=== PATIENT | female | born 1955 | race Caucasian/White ===

== ENCOUNTER 2017-06-19 16:23 | Inpatient (IN) | payer SELFPAY ==
[~2017-06-19] VITALS: Ht 160 cm; Wt 58.2 kg
--- NOTE | ~2017-06-19 | OP ---
PATIENT NAME: DELIA HENSLEY MEDICAL RECORD: [id number] :57 LOCATION:[id number] ADMISSION DATE:06/19/17 SURGEON: HYUN ROSAS, DATE OF OPERATION: 06/20/2017 HISTORY: Ms. Hensley is a 62-year-old right hand dominant female who fell 3 days ago after tripping over her dog. PREOPERATIVE DIAGNOSIS: Right proximal humerus fracture. POSTOPERATIVE DIAGNOSIS: Right proximal humerus fracture. PROCEDURE PERFORMED: Right proximal humerus open reduction internal fixation. INDICATIONS: Ms. Hensley as mentioned above tripped over her dog 3-4 days ago and sustained a proximal humerus fracture. She did seek medical attention because she thought she could still move her fingers even though she had some numbness in the ring and small fingers. She came to the ER after more pain and swelling in the shoulder. X-rays were taken and she has shown to see a very comminuted proximal humerus fracture at the surgical neck as well as greater tuberosity. It extended down into the shaft. This was noted and she was admitted to the hospital in preparation for surgery today. DESCRIPTION OF PROCEDURE: The patient was given a block and preoperative anesthesia, given a gram of Ancef preoperatively, taken to the operative suite, laid in the supine position, intubated and put in the beach chair position. A bump was placed under scapula. Then, the right arm was prepped and draped in sterile fashion. After this was done, timeout was performed and everyone was in agreeance with the correct side, site, and patient. The patient had been consented prior to the surgery and is aware of the risks and benefits. Once the patient was prepped and draped and a timeout was performed, incision was made in the deltopectoral interval with a 10 blade and then careful dissection was made down to the cephalic vein. The cephalic vein was taken medially. The proximal centimeter or so of the pectoralis major was taken off the humerus, released and the fracture was seen to be very comminuted especially the head and greater tuberosity was reduced and a plate was put on and screws were put into the shaft holding the reduction. Once this was done, screws were shot up into the head itself. There was severe comminution over the medial calcar, which is concerning for healing. When screws were shot up into the head, I put several locking screws into the head. Fluoroscopy was taken to ensure there were no screws in the joint and then 2 more screws were put in the shaft, locking screws. After this was done, the fracture was somewhat reduced. The supraspinatus and infraspinatus had been sutured prior and these were sutured down to the plate, giving a small reduction of the greater tuberosity down to the plate. X-rays were then taken even an axillary view and again showing that none of the screws were into the joint and the fracture was held in adequate position. The plate that was used was a Biomet plate, 4-hole proximal humerus high plate was used. There were eight 3.5 screws used, locking screws and one 3.5 nonlocking screw. After the plate had been put in, x-rays were taken and the rotator cuff was sutured down to the plate. The wound was thoroughly irrigated and then the fascia over the deltopectoral interval was approximated with #1 Vicryl. The skin was then closed with 2-0 Vicryl in an inverted interrupted fashion and Prineo was placed on the skin and Telfa and Tegaderm placed over that and the patient was wrapped with Michele wrap from the hand up for swelling and put in a sling. She was awakened and taken to recovery in stable OPERATIVE REPORT [id number] DELIA HENSLEY condition. Blood loss was approximately 200 mL. Complications were none. TRANSINT:[id number] Voice Confirmation ID: [id number] DOCUMENT ID: [id number] HYUN ROSAS DO at 1425 CC: [id number] DICTATION DATE: 06/20/17 1140 FIRE BATTALION CHIEF: 06/20/17 1339 ADM IN [facility] [address] [id number]
[2017-06-19 18:08] LABS: BASOPHILS 0.1 % (0-2); EOSINOPHILS 0 % (0-7); HEMATOCRIT 38.9 % (36.0-48.0); IMMATURE GRANULOCYTES 0.2 % (0-5); MCH 33.5 pg (26.0-34.0); MCV 93.1 fL (80.0-100.0); MEAN PLATELET VOLUME 10.1 fL (7.4-10.4); MONOCYTES 11.7 % (2-11); PLATELET COUNT 165 10x3/uL (130-400); RBC 4.18 10x6/uL (4.00-5.40); RDW 12.6 % (11.5-14.5); WBC 10.9 10x3/uL (4.8-10.8)
[2017-06-19 18:17] LABS: CALC OSMOLALITY 264 mosm/kg (275-300); CALCIUM 9.4 mg/dL (8.5-10.1); CARBON DIOXIDE 28.3 mmol/L (21.0-32.0); CHLORIDE - SERUM 95 mmol/L (98-107); CREATININE - SERUM 0.4 mg/dL (0.6-1.3); GLUCOSE 110 mg/dL (74-106); POTASSIUM - SERUM 3.4 mmol/L (3.5-5.1); SODIUM 133 mmol/L (136-145); UREA NITROGEN 8 mg/dL (7-18); eGFR NON AFRICAN AMERICAN > 90 mL/min (90-120)
[2017-06-19 20:00] VITALS: BP 123/58
[2017-06-19 22:34] VITALS: BP 118/86; Ht 160 cm; Wt 58.2 kg
[2017-06-19] MEDS ORDERED: CELEXA20 MG PO (23:01)
[2017-06-19] MEDS ORDERED: XANAX0.5 MG PO (23:02)
[2017-06-20] VITALS: BP 118/80
[2017-06-20 04:00] VITALS: BP 114/83
[2017-06-20 08:47] VITALS: BP 154/95
[2017-06-20 18:42] VITALS: BP 136/74
[2017-06-21] VITALS: BP 143/78
[2017-06-21 04:00] VITALS: BP 165/92
[2017-06-21 06:21] LABS: HEMATOCRIT 35.3 % (36.0-48.0); HEMOGLOBIN 12.2 g/dL (12-16)
[2017-06-21 06:38] VITALS: BP 165/92
[2017-06-21 06:59] LABS: ALBUMIN 2.7 g/dL (3.4-5.0); ALKALINE PHOSPHATASE 52 U/L (46-116); ALT (SGPT) 17 U/L (10-68); BILIRUBIN - TOTAL 0.92 mg/dL (0.2-1.3); CALC OSMOLALITY 268 mosm/kg (275-300); CALCIUM 8.2 mg/dL (8.5-10.1); CHLORIDE - SERUM 97 mmol/L (98-107); CREATININE - SERUM 0.4 mg/dL (0.6-1.3); GLUCOSE 117 mg/dL (74-106); POTASSIUM - SERUM 3.2 mmol/L (3.5-5.1); PROTEIN - SERUM 5.6 g/dL (6.4-8.2); SODIUM 135 mmol/L (136-145); UREA NITROGEN 7 mg/dL (7-18); eGFR NON AFRICAN AMERICAN > 90 mL/min (90-120)
[2017-06-21 08:21] VITALS: BP 146/85
[2017-06-21 10:34] LABS: BASOPHILS 0.1 % (0-2); EOSINOPHILS 0.1 % (0-7); IMMATURE GRANULOCYTES 0.3 % (0-5); LYMPHOCYTES 11.7 % (15-50); MCH 32.9 pg (26.0-34.0); MCHC 33.9 g/dL (31.0-37.0); MEAN PLATELET VOLUME 10.6 fL (7.4-10.4); MONOCYTES 16.7 % (2-11); NEUTROPHILS 71.1 % (40-80); PLATELET COUNT 166 10x3/uL (130-400); RBC 3.68 10x6/uL (4.00-5.40); RDW 12.7 % (11.5-14.5); WBC 9.3 10x3/uL (4.8-10.8)
[2017-06-21] MEDS ORDERED: OXYCODONE HCL5 MG PO (12:37)
[2017-06-21] MEDS ORDERED: ATARAX 25 MG TA25 MG PO (12:37)
== END 2017-06-21 14:38 | disposition home or self-care (01) | DRG 493 ==
LOC: D.ER 16:23 → D.MS 19:00
PROVIDERS: Emergency Medicine; Orthopaedic Surgery
PROC: 0PSF04Z Reposition Right Humeral Shaft with Internal Fixation Device, Open Approach (ICD-10-PCS; principal; 2017-06-20 09:17)
DX: S42.301A Unspecified fracture of shaft of humerus, right arm, initial encounter for closed fracture (principal); F17.203 Nicotine dependence unspecified, with withdrawal; S42.211A Unspecified displaced fracture of surgical neck of right humerus, initial encounter for closed fracture; S42.251A Displaced fracture of greater tuberosity of right humerus, initial encounter for closed fracture; W01.0XXA Fall on same level from slipping, tripping and stumbling without subsequent striking against object, initial encounter; J44.9 Chronic obstructive pulmonary disease, unspecified; E87.6 Hypokalemia; I10 Essential (primary) hypertension

== ENCOUNTER 2017-08-04 09:37 | Day surgery (SDC) | payer SELFPAY ==
[~2017-08-04] VITALS: Ht 157.5 cm; Wt 58.1 kg
--- NOTE | ~2017-08-04 | OP ---
PATIENT NAME: DELIA HENSLEY MEDICAL RECORD: [id number] :57 LOCATION:[facility] ADMISSION DATE: SURGEON: HYUN ROSAS DO DATE OF OPERATION: 08/04/2017 PROCEDURE PERFORMED: Removal of hardware, right proximal humerus. PREOPERATIVE DIAGNOSIS: Right proximal humerus painful hardware and hardware failure. POSTOPERATIVE DIAGNOSIS: Right proximal humerus painful hardware and hardware failure. INDICATIONS: Ms. Hensley is a 62-year-old female who underwent right proximal humerus ORIF approximately 6 weeks ago after falling and tripping over her dog. She did well postoperatively. She was monitored closely until about 2 weeks ago, she started to have increasing pain in her shoulder. X-rays were taken and started to show some screw cut out in the most 2 proximal screws of the plate from the head, superior part of the head collapsing. Ms. Hensley was informed prior to her discharge after the first surgery that if she did not stop smoking, this was a risk and that the actual fracture may never heal. She is aware that and smoked anyways and happened what I had warned her of the screws would cut out and the head would collapse. However, it did not collapse medially, it did superiorly. Once this was seen on x-rays, she was consented for removal of the top 2 screws that had been cut out and did not want them scraping into joint. She was informed of the risks and benefits of this including need for further surgery, further screw cutout and infection. She had normal white count prior to the surgery. I was not worried about infection, but she was warned about further failure if she did not stop smoking and she consented to the procedure of removing the top 2 screws. DESCRIPTION OF PROCEDURE: She received a block in the preoperative area by anesthesia. She was then taken to the operative suite, given 900 mg of clindamycin preoperatively. A timeout was performed and everyone was in agreeance to correct side, site, and patient. The patient had an LMA placed and was sedated, placed in the beach chair position and then the right shoulder was prepped and draped in sterile fashion. After time out and the patient was positioned, incision commenced following the old deltopectoral interval. Careful dissection was made down to the cephalic vein, which was seen, taken laterally and there was quite a significant amount of scar tissue this has gone through and then the plate was exposed. The top 2 screws were seen and removed and this was confirmed under fluoroscopy. The fracture seemed to be stable; however, not completely healed, so no further work was done. This wound was then thoroughly irrigated and vancomycin powder was put in the wound and then the deltopectoral interval was closed with #1 Vicryl single interrupted stitches and then the skin was closed with 2-0 Vicryl in an inverted interrupted fashion and then Prineo was placed on the skin for closure. Blood loss was approximately 50 mL. Complications were none. TRANSINT:[id number] Voice Confirmation ID: [id number] DOCUMENT ID: [id number] OPERATIVE REPORT [id number] DELIA HENSLEY,HYUN Tamayo DO at 1450 CC: [id number] DICTATION DATE: 08/04/17 1320 BELL NECK HAMMERER: 08/04/17 1433 [facility] [address] [place] [address]
[~2017-08-04 09:37] MED LIST: ATARAX 25 MG TA25 MG PO; CELEXA20 MG PO; OXYCODONE HCL5 MG PO; PERCOCET 5-3251 TAB PO; XANAX0.5 MG PO
[2017-08-04 10:39] LABS: HEMOGLOBIN 17.4 g/dL (12-16); MCH 32.8 pg (26.0-34.0); MCHC 34.8 g/dL (31.0-37.0); MCV 94.2 fL (80.0-100.0); MEAN PLATELET VOLUME 10.3 fL (7.4-10.4); RBC 5.31 10x6/uL (4.00-5.40); RDW 12.3 % (11.5-14.5)
[2017-08-04 10:56] VITALS: BP 162/123; Ht 157.5 cm; Wt 58.1 kg
[2017-08-04 11:17] LABS: CALC OSMOLALITY 273 mosm/kg (275-300); CALCIUM 9.5 mg/dL (8.5-10.1); CHLORIDE - SERUM 99 mmol/L (98-107); CREATININE - SERUM 0.5 mg/dL (0.6-1.3); GLUCOSE 114 mg/dL (74-106); POTASSIUM - SERUM 3.9 mmol/L (3.5-5.1); SODIUM 138 mmol/L (136-145); UREA NITROGEN 5 mg/dL (7-18); eGFR NON AFRICAN AMERICAN > 90 mL/min (90-120)
[2017-08-04] MEDS ORDERED: PERCOCET 10/3251 TA1 PO (13:14)
[2017-08-04] MEDS ORDERED: AUGMENTIN 875-11 TAB PO (13:15)
== END 2017-08-04 16:05 | disposition home or self-care (01) ==
LOC: D.OPS 09:37 → D.PAN 12:00 → D.OPS 12:00
PROVIDERS: Anesthesiology
DX: T85.848A Pain due to other internal prosthetic devices, implants and grafts, initial encounter (principal); S42.291S Other displaced fracture of upper end of right humerus, sequela; F17.200 Nicotine dependence, unspecified, uncomplicated; I10 Essential (primary) hypertension; G47.30 Sleep apnea, unspecified; Z01.812 Encounter for preprocedural laboratory examination

== ENCOUNTER 2017-12-27 08:25 | Inpatient (IN) | payer MEDICAID ==
[2017-12-24 09:43] LABS: BASOPHILS 0.1 % (0-2); HEMATOCRIT 46.3 % (36.0-48.0); HEMOGLOBIN 16.4 g/dL (12-16); IMMATURE GRANULOCYTES 0.1 % (0-5); LYMPHOCYTES 25.9 % (15-50); MCH 31.9 pg (26.0-34.0); MCHC 35.4 g/dL (31.0-37.0); MCV 90.1 fL (80.0-100.0); MEAN PLATELET VOLUME 9.8 fL (7.4-10.4); MONOCYTES 9.3 % (2-11); NEUTROPHILS 63.6 % (40-80); PLATELET COUNT 182 10x3/uL (130-400); RBC 5.14 10x6/uL (4.00-5.40); RDW 14.1 % (11.5-14.5); WBC 8.4 10x3/uL (4.8-10.8)
[2017-12-24 09:49] LABS: APPEARANCE CLEAR (CLEAR); BILIRUBIN NEGATIVE (NEGATIVE); COLOR YELLOW (YELLOW); GLUCOSE NEGATIVE (NEGATIVE); KETONE NEGATIVE (NEGATIVE); NITRITE NEGATIVE (NEGATIVE); PROTEIN NEGATIVE (NEGATIVE); UROBILINOGEN NORMAL (NORMAL)
[2017-12-24 09:51] LABS: CALC OSMOLALITY 261 mosm/kg (275-300); CALCIUM 8.7 mg/dL (8.5-10.1); CARBON DIOXIDE 33.8 mmol/L (21.0-32.0); CHLORIDE - SERUM 96 mmol/L (98-107); CREATININE - SERUM 0.6 mg/dL (0.6-1.3); GLUCOSE 79 mg/dL (74-106); POTASSIUM - SERUM 3.5 mmol/L (3.5-5.1); SODIUM 132 mmol/L (136-145); UREA NITROGEN 8 mg/dL (7-18); eGFR NON AFRICAN AMERICAN > 90 mL/min (90-120)
[2017-12-24 09:52] LABS: PROTIME 12.8 SECONDS (11.6-15.0)
[2017-12-24 09:53] LABS: APTT 28.4 SECONDS (22.8-39.4)
[2017-12-27] VITALS (9 sets, daily range): BP systolic 100–149; BP diastolic 54–89; Ht 152.4 cm; Wt 54.5 kg
[~2017-12-27] VITALS: Ht 152.4 cm; Wt 54.5 kg
--- NOTE | ~2017-12-27 | OP ---
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 PROCEDURES: 1. Removal of hardware of the right shoulder. 2. Right total shoulder arthroplasty. SURGEON: Larry Granda MD ANESTHESIA: General. INTRAOPERATIVE COMPLICATIONS: The patient had a large posterior fragment of the greater tuberosity, which had retracted over. Fortunately, after removal of this, the rotator cuff was still intact. The area that was required to get to it was repaired nicely. The patient's proximal humeral head had substantial areas of nonunion including the entire surgical neck of the humerus. It was, however, replaceable with what I feel like is a very good surgical construct. OPERATIVE SUMMARY IN DETAIL: After obtaining the appropriate preoperative orthopaedic surgery consent as well as anesthetic consultation, evaluation, and clearance, the patient was brought to the operating room and placed on the operating table in the supine position. After general laryngeal mask was administered, the patient was placed in the beachchair position. The arm was held in the Trimano arm holding device after it was prepped and draped in a routine sterile fashion. Previously utilized deltopectoral incision was utilized again. Substantial scar tissue was encountered. Scar tissue was then taken down to the area of the clavipectoral fascia. Conjoined tendon was identified. The deltoid was very gently teased off the rotator cuff. After careful evaluation, inspection, and fluoroscopic examination, the patient's posterior fragment that was interposed in the joint was identified. First, the subscapularis was taken down in a peel-down effect. The entire lesser tuberosity was essentially nonunited and was removed. At this point, the humeral head was cut because it was also found to be nonunited. The humeral head cut was made and the entire joint was inspected and evaluated. The shoulder was then internally rotated. After the humeral head cut was made, a small incision was made in the rotator cuff posteriorly between supraspinatus and infraspinatus tendons and a large fragment of bone was removed. It was somewhat adherent to the rotator cuff but in of itself was not the entire rotator cuff attachment. After removing this, this rotator cuff incision was repaired [id number] with #2 Ethibond. I felt like this was a solid repair of the defect created by removing the bone. The shoulder was then externally rotated again and the proximal humerus was reamed and broached. While the canal was big, the proximal aspect was very hard. I was concerned that if I tried to put down a much larger stem than a #5, I would cause proximal fracture. The #5 stem with cut protect cover was then put into place and the glenoid was approached. Please note that the biceps was tenotomized earlier and saved for later tenotomy. After the circumferential labrectomy was performed, the guide OPERATIVE REPORT [id number] DELIA HENSLEY was then utilized for reaming of the glenoid for a size small. The glenoid was prepared for the VaultLock glenoid from [employer]. Copious flushing with epinephrine laden saline was then followed by insertion of the glenoid component. All excess cement was removed and the glenoid was held firmly until the cement was completely hard. At this point, the proximal humerus was reapproached. The size #5 stem with a 42 x 17 head was picked. The size #5 stem was then cemented into the proximal humerus. This was because of the substantial amount of poor bone quality associated with the patient's previous fracture. After the cement was hardened, the heads were trialed and it was felt that the best coverage and best thickness was 42 x 17. This was tamped in place with Gonzalez taper with a 2-mm offset being positioned so that the patient had the most optimal coverage without rotator cuff abutment. Shoulder was reduced at this point. Fluoroscopy was then brought back in. Radiographs were taken that showed very nice construct. Having completed this, wound was copiously irrigated. The subscapularis peel and opening were closed with #2 Ethibond in transosseous fashion. Although the lesser tuberosity had been previously removed, there was ample enough bone to reapproximate the subscapularis back to a transosseous fashion with #2 Ethibond. Having completed this, wound was then again irrigated. Eileen was used to help control generalized ooze of the patient. The wound was then closed with #1 Vicryl followed by 2-0 Vicryl and skin archie. Sterile dressings were applied. The patient was awakened and taken to the recovery room in stable condition. All final needle and sponge counts were correct. TRANSINT:[id number] Voice Confirmation ID: [id number] DOCUMENT ID: [id number] KALEE ESPINOZA, LARRY COLON at 1549 CC: [id number] DICTATION DATE: 12/27/17 1605 ELECTRIC MULE DRIVER: 12/27/17 1644 ADM IN [address] [id number] [place] [address]
[~2017-12-27 08:25] MED LIST changes: +AUGMENTIN 875-11 TAB PO; +COZAAR100 MG PO; +PERCOCET 10/3251 TA1 PO; +PROTONIX20 MG PO; +TENORETIC 50 TA1 TAB PO
[2017-12-28 05:39] LABS: HEMATOCRIT 37.3 % (36.0-48.0); HEMOGLOBIN 12.8 g/dL (12-16); MCH 30.9 pg (26.0-34.0); MCHC 34.3 g/dL (31.0-37.0); MCV 90.1 fL (80.0-100.0); MEAN PLATELET VOLUME 9.8 fL (7.4-10.4); RBC 4.14 10x6/uL (4.00-5.40); RDW 14.1 % (11.5-14.5); WBC 7.7 10x3/uL (4.8-10.8)
[2017-12-28] MEDS ORDERED: PERCOCET 10/3251 TA1 PO (07:50)
[2017-12-28 08:25] VITALS: BP 113/64
[2017-12-28 11:57] VITALS: BP 159/57
[2017-12-28 16:27] VITALS: BP 140/79
== END 2017-12-28 19:42 | disposition home or self-care (01) | DRG 483 ==
LOC: D.OPS 08:25 → D.PAN 10:30 → D.OPS 11:10 → D.MS 16:25 → D.OPS 16:26 → D.MS 12-28 19:42
PROVIDERS: Orthopaedic Surgery
PROC: 0PPC04Z Removal of Internal Fixation Device from Right Humeral Head, Open Approach (ICD-10-PCS; 2017-12-27)
PROC: 0PT Upper Bones, Resection (ICD-10-PCS; 2017-12-27)
PROC: 0RRJ0JZ Replacement of Right Shoulder Joint with Synthetic Substitute, Open Approach (ICD-10-PCS; principal; 2017-12-27 10:00)
DX: T84.84XA Pain due to internal orthopedic prosthetic devices, implants and grafts, initial encounter (principal); S42.251K Displaced fracture of greater tuberosity of right humerus, subsequent encounter for fracture with nonunion; X58.XXXD Exposure to other specified factors, subsequent encounter

== ENCOUNTER 2018-04-25 09:05 | Day surgery (SDC) | payer MEDICAID ==
[2018-04-22 09:43] LABS: HEMATOCRIT 43.7 % (36.0-48.0); HEMOGLOBIN 15.4 g/dL (12-16); MCH 31.2 pg (26.0-34.0); MCHC 35.2 g/dL (31.0-37.0); MCV 88.6 fL (80.0-100.0); MEAN PLATELET VOLUME 9.6 fL (7.4-10.4); RBC 4.93 10x6/uL (4.00-5.40); RDW 13.7 % (11.5-14.5); WBC 6.4 10x3/uL (4.8-10.8)
[~2018-04-25] VITALS: Ht 157.5 cm; Wt 60.3 kg
--- NOTE | ~2018-04-25 | OP ---
PATIENT NAME: DELIA HENSLEY MEDICAL RECORD: [id number] :57 LOCATION:D.[facility] ADMISSION DATE: SURGEON: LARRY GRANDA MD DATE OF OPERATION: 04/25/2018 PREOPERATIVE DIAGNOSIS: Carpal tunnel syndrome of the right wrist. POSTOPERATIVE DIAGNOSIS: Carpal tunnel syndrome of the right wrist. PROCEDURE: Right carpal tunnel release. SURGEON: Larry Granda MD ANESTHESIA: General. INTRAOPERATIVE COMPLICATIONS: None. SUMMARY OF PATHOLOGIC FINDINGS: The patient had a very tight transverse carpal ligament consistent with the preoperative diagnosis. OPERATIVE SUMMARY IN DETAIL: After obtaining the appropriate preoperative orthopedic surgery consent as well as anesthetic consultation, evaluation and clearance, the patient was brought to the operating room and placed on the table in supine position. After adequate general laryngeal mask airway was administered, tourniquet was placed on the proximal aspect of the right upper extremity. Right upper extremity was then prepped and draped in routine sterile fashion. Arm was elevated and exsanguinated, tourniquet was inflated to 250 mmHg. Midline incision was made in line with third metacarpal. This was taken down to the level of the transverse carpal ligament, which was identified. A small incision then gave immediate access to the median nerve, which was then protected with the Pollard elevator on direct visualization then. The [employer] light knife was utilized to completely release the transverse carpal ligament to the proximal wrist crease. Having completed this, the wound was irrigated and closed with 4-0 Prolene in routine vertical mattress fashion. The area was locally infiltrated with 0.25% Marcaine plain. Sterile dressings were applied. Tourniquet was deflated. The patient was awakened and taken to the recovery room in stable condition. All final needle and sponge counts were correct. TRANSINT:[id number] Voice Confirmation ID: [id number] DOCUMENT ID: [id number] LARRY GRANDA MD at 1312 CC: [id number] DICTATION DATE: 04/29/18 1359 TOOL AND CUTTER GRINDER: 04/29/18 1520 [facility] 04/25/18 [place] [address]
[2018-04-25 10:22] VITALS: BP 86/63; Ht 157.5 cm; Wt 60.3 kg
== END 2018-04-25 13:06 | disposition home or self-care (01) ==
LOC: D.OPS 09:05 → D.PAN 15:15 → D.OPS 17:00 → D.PAN 17:00
PROVIDERS: Anesthesiology
DX: G56.01 Carpal tunnel syndrome, right upper limb (principal); Z01.812 Encounter for preprocedural laboratory examination

== ENCOUNTER 2018-05-10 14:09 | Emergency (ER) | payer MEDICAID ==
[~2018-05-10] VITALS: Ht 157.5 cm; Wt 59.5 kg
[2018-05-10 14:11] VITALS: Ht 157.5 cm; Wt 59.5 kg
[2018-05-10 15:06] LABS: BASOPHILS 0.1 % (0-2); EOSINOPHILS 0.6 % (0-7); HEMATOCRIT 37.6 % (36.0-48.0); HEMOGLOBIN 13.4 g/dL (12-16); IMMATURE GRANULOCYTES 0.3 % (0-5); LYMPHOCYTES 17.8 % (15-50); MCH 31.1 pg (26.0-34.0); MCHC 35.6 g/dL (31.0-37.0); MCV 87.2 fL (80.0-100.0); MEAN PLATELET VOLUME 9.9 fL (7.4-10.4); NEUTROPHILS 72.2 % (40-80); PLATELET COUNT 172 10x3/uL (130-400); RBC 4.31 10x6/uL (4.00-5.40); RDW 13.4 % (11.5-14.5)
[2018-05-10 15:20] LABS: APTT 24.7 SECONDS (22.8-39.4); INR 0.99 (0.85-1.17); PROTIME 12.6 SECONDS (11.6-15.0)
[2018-05-10 15:22] LABS: ALBUMIN 3.4 g/dL (3.4-5.0); ALKALINE PHOSPHATASE 55 U/L (46-116); ALT (SGPT) 8 U/L (10-68); BILIRUBIN - TOTAL 0.23 mg/dL (0.2-1.3); CALC OSMOLALITY 261 mosm/kg (275-300); CALCIUM 8.6 mg/dL (8.5-10.1); CARBON DIOXIDE 29.9 mmol/L (21.0-32.0); CHLORIDE - SERUM 96 mmol/L (98-107); CREATININE - SERUM 0.8 mg/dL (0.6-1.3); GLUCOSE 91 mg/dL (74-106); POTASSIUM - SERUM 3.5 mmol/L (3.5-5.1); PROTEIN - SERUM 6.4 g/dL (6.4-8.2); SODIUM 130 mmol/L (136-145); UREA NITROGEN 16 mg/dL (7-18); eGFR NON AFRICAN AMERICAN 77 mL/min (90-120)
[2018-05-10 15:33] LABS: CKMB 0.7 U/L (0.0-3.6); CREATINE KINASE 24 UL (21-215)
[2018-05-10 15:37] LABS: TROPONIN-I < 0.017 ng/mL (0.000-0.060)
[2018-05-10] MEDS ORDERED: TENORMIN25 MG PO (17:53)
[2018-05-10 18:20] VITALS: BP 99/69
== END 2018-05-10 18:20 | disposition home or self-care (01) ==
LOC: D.ER 14:09
PROVIDERS: Emergency Medicine
DX: R55 Syncope and collapse (principal); J44.9 Chronic obstructive pulmonary disease, unspecified; I10 Essential (primary) hypertension; E87.1 Hypo-osmolality and hyponatremia; I95.9 Hypotension, unspecified; F17.200 Nicotine dependence, unspecified, uncomplicated; R00.1 Bradycardia, unspecified

== ENCOUNTER → 2018-06-13 14:02 | Outpatient (CLI) | payer MEDICAID ==
[2018-05-10 14:11] VITALS: BMI 24.0
[~2018-06-13 14:02] MED LIST changes: +TENORMIN25 MG PO
== END | disposition home or self-care (01) ==
LOC: D.RAD 14:02
DX: M25.511 Pain in right shoulder (principal)

== ENCOUNTER 2018-07-07 09:30 | Day surgery (SDC) | payer MEDICAID ==
[2018-07-06 09:54] LABS: HEMATOCRIT 46.2 % (36.0-48.0); HEMOGLOBIN 16.4 g/dL (12-16); MCH 32.2 pg (26.0-34.0); MCHC 35.5 g/dL (31.0-37.0); MCV 90.6 fL (80.0-100.0); MEAN PLATELET VOLUME 10.3 fL (7.4-10.4); RBC 5.1 10x6/uL (4.00-5.40); RDW 14.1 % (11.5-14.5); WBC 12.5 10x3/uL (4.8-10.8)
[2018-07-06 09:57] LABS: CALC OSMOLALITY 273 mosm/kg (275-300); CALCIUM 8.8 mg/dL (8.5-10.1); CARBON DIOXIDE 26.4 mmol/L (21.0-32.0); CHLORIDE - SERUM 100 mmol/L (98-107); CREATININE - SERUM 0.7 mg/dL (0.6-1.3); GLUCOSE 85 mg/dL (74-106); POTASSIUM - SERUM 3.9 mmol/L (3.5-5.1); SODIUM 138 mmol/L (136-145); UREA NITROGEN 11 mg/dL (7-18); eGFR NON AFRICAN AMERICAN 90 mL/min (90-120)
[~2018-07-07] VITALS: Ht 157.5 cm; Wt 59.4 kg
[~2018-07-07 09:30] MED LIST changes: +BENZONATATE200 MG PO; +NEURONTIN 300300 MG PO
[2018-07-07] MEDS ORDERED: DESERYL50 M2 PO (10:08)
[2018-07-07 10:20] VITALS: BP 117/78; Ht 157.5 cm; Wt 59.4 kg
[2018-07-07] MEDS ORDERED: NORCO 10-325 TA1 TAB PO (12:51)
--- NOTE | 2018-07-08 14:30 | OP ---
PATIENT NAME: DELIA HENSLEY MEDICAL RECORD: [id number] :59 LOCATION:D.OPS ADMISSION DATE: SURGEON: LARRY GRANDA MD DATE OF OPERATION: 07/07/2018 PREOPERATIVE DIAGNOSIS: Cubital tunnel syndrome of the right upper extremity. POSTOPERATIVE DIAGNOSIS: Cubital tunnel syndrome of the right upper extremity. PROCEDURE: Cubital tunnel release at the right elbow. SURGEON: Larry Granda MD ANESTHESIA: General. INTRAOPERATIVE COMPLICATIONS: None. SUMMARY OF PATHOLOGIC FINDINGS: The patient had tight fibrous adhesions in 3 separate locations about the cubital tunnel. These all released in their entirety. OPERATIVE SUMMARY IN DETAIL: After obtaining the appropriate preoperative orthopedic surgery consent as well as anesthetic consultation, evaluation, and clearance operating room and placed on the operating the operating table in supine position. After adequate general laryngeal mask was administered, tourniquet was placed about the proximal aspect of the right upper extremity. Right upper extremity was then prepped and draped in routine sterile fashion. The arm was exsanguinated and inflated to 250 mmHg. Curvilinear incision was made on the medial aspect of the elbow between the medial epicondyle and the tip of the trochlea. This was taken down and the ulnar nerve was identified in its entirety. Care was taken to release the ulnar nerve approximately 8 cm proximal and 8 cm distal under direct visualization. Good release was achieved. Wound was then irrigated and closed with 4-0 Prolene in running fashion. Sterile dressings were applied. Tourniquet was deflated. The patient was awakened, taken to recovery room in stable condition. All final needle and sponge counts were correct. TRANSINT:[id number] Voice Confirmation ID: [id number] DOCUMENT ID: [id number] LARRY GRANDA MD at 1430 CC: [id number] DICTATION DATE: 07/07/18 1245 MACHINE DEBURRER: 07/07/[address] [facility] 07/07/[address] [address]
== END 2018-07-07 14:50 | disposition home or self-care (01) ==
LOC: D.OPS 09:30 → D.PAN 11:30 → D.OPS 12:55
PROVIDERS: Anesthesiology
DX: G56.21 Lesion of ulnar nerve, right upper limb (principal)

== ENCOUNTER 2020-09-20 19:39 | Emergency (ER) | payer OTHER ==
[~2020-09-20] VITALS: Ht 157.5 cm; Wt 65.5 kg
[~2020-09-20 19:39] MED LIST changes: +DESERYL50 M2 PO; +NORCO 10-325 TA1 TAB PO
[2020-09-20 19:47] VITALS: Ht 157.5 cm; Wt 65.5 kg
[2020-09-20] MEDS ORDERED: TENORMIN50 MG PO (19:48)
[2020-09-20] MEDS ORDERED: CYMBALTA60 MG PO (19:49)
[2020-09-20 20:31] LABS: BASOPHILS 0.3 % (0-2); EOSINOPHILS 0.3 % (0-7); HEMATOCRIT 45.2 % (36.0-48.0); HEMOGLOBIN 14.9 g/dL (12-16); IMMATURE GRANULOCYTES 0.1 % (0-5); LYMPHOCYTE ABS# 1.85 10x3/uL (1.18-3.74); LYMPHOCYTES 24.1 % (15-50); MCH 30.2 pg (26.0-34.0); MCV 91.7 fL (80.0-100.0); MEAN PLATELET VOLUME 10.3 fL (7.4-10.4); MONOCYTES 12.9 % (2-11); NEUTROPHIL ABS# 4.79 10x3/uL (1.56-6.13); NEUTROPHILS 62.3 % (40-80); PLATELET COUNT 184 10x3/uL (130-400); RBC 4.93 10x6/uL (4.00-5.40); RDW 13.8 % (11.5-14.5); WBC 7.7 10x3/uL (4.8-10.8)
[2020-09-20 20:36] LABS: INR 1.08 (0.85-1.17); PROTIME 12.9 SECONDS (11.6-15.0)
[2020-09-20 20:38] LABS: CALC OSMOLALITY 268 mosm/kg (275-300); CALCIUM 9.1 mg/dL (8.5-10.1); CARBON DIOXIDE 25.1 mmol/L (21.0-32.0); CHLORIDE - SERUM 99 mmol/L (98-107); CREATININE - SERUM 0.5 mg/dL (0.6-1.3); GLUCOSE 106 mg/dL (74-106); POTASSIUM - SERUM 3.5 mmol/L (3.5-5.1); SODIUM 135 mmol/L (136-145); UREA NITROGEN 10 mg/dL (7-18); eGFR NON AFRICAN AMERICAN > 90 mL/min (90-120)
[2020-09-20 20:51] LABS: ALBUMIN 3.6 g/dL (3.4-5.0); ALKALINE PHOSPHATASE 71 U/L (30-120); ALT (SGPT) 38 U/L (10-68); PROTEIN - SERUM 7.2 g/dL (6.4-8.2); THYROID STIMULATING HORMONE 0.64 uIU/mL (0.36-3.74)
[2020-09-21 01:13] VITALS: BP 119/72
== END 2020-09-21 01:14 | disposition home or self-care (01) ==
LOC: D.ER 19:39
PROVIDERS: Family Medicine
DX: R04.0 Epistaxis (principal); I10 Essential (primary) hypertension; J44.9 Chronic obstructive pulmonary disease, unspecified; K21.9 Gastro-esophageal reflux disease without esophagitis

== ENCOUNTER 2020-09-21 20:32 | Observation (INO) | payer OTHER ==
[~2020-09-21] VITALS: Ht 157.5 cm; Wt 65.5 kg
[~2020-09-21 20:32] MED LIST changes: +CYMBALTA60 MG PO; +TENORMIN50 MG PO
[2020-09-21 21:04] LABS: BASOPHILS 0.1 % (0-2); EOSINOPHILS 0.3 % (0-7); HEMATOCRIT 40.2 % (36.0-48.0); HEMOGLOBIN 13.4 g/dL (12-16); IMMATURE GRANULOCYTES 0.2 % (0-5); LYMPHOCYTE ABS# 2.14 10x3/uL (1.18-3.74); LYMPHOCYTES 24.8 % (15-50); MCH 30.3 pg (26.0-34.0); MCHC 33.3 g/dL (31.0-37.0); MONOCYTES 10.7 % (2-11); NEUTROPHILS 63.9 % (40-80); PLATELET COUNT 188 10x3/uL (130-400); RBC 4.42 10x6/uL (4.00-5.40); RDW 13.7 % (11.5-14.5); WBC 8.6 10x3/uL (4.8-10.8)
[2020-09-21 22:51] VITALS: BP 162/94
[2020-09-21 23:12] LABS: INR 1.08 (0.85-1.17); PROTIME 12.9 SECONDS (11.6-15.0)
[2020-09-21 23:13] LABS: CALC OSMOLALITY 263 mosm/kg (275-300); CALCIUM 9.1 mg/dL (8.5-10.1); CARBON DIOXIDE 29.4 mmol/L (21.0-32.0); CHLORIDE - SERUM 98 mmol/L (98-107); CREATININE - SERUM 0.5 mg/dL (0.6-1.3); GLUCOSE 98 mg/dL (74-106); SODIUM 132 mmol/L (136-145); UREA NITROGEN 11 mg/dL (7-18); eGFR NON AFRICAN AMERICAN > 90 mL/min (90-120)
[2020-09-21 23:18] LABS: ALBUMIN 3.5 g/dL (3.4-5.0); ALKALINE PHOSPHATASE 65 U/L (30-120); ALT (SGPT) 31 U/L (10-68); BILIRUBIN - TOTAL 0.63 mg/dL (0.2-1.3); PHOSPHOROUS 3.9 mg/dL (2.5-4.9); PROTEIN - SERUM 6.6 g/dL (6.4-8.2)
--- NOTE | 2020-09-21 23:22 | NUR ---
PT TO ROOM 2104 VIA WHEELCHAIR ACCOMPANIED BY HOSPITAL STAFF.
--- NOTE | 2020-09-22 00:10 | NUR ---
COMPLETION OF ADMISSION ASSESSMENT AND HISTORY. REVIEW HOME MEDS AND UP DATE MED PROFILE. PT IN NO DISTRESS. PLAN OF CARE REVIEWED.
[2020-09-22 00:30] VITALS: BP 112/78
[2020-09-22 01:14] VITALS: BP 112/78; Ht 157.5 cm; Wt 65.5 kg
[2020-09-22 04:30] VITALS: BP 100/67
[2020-09-22 04:43] LABS: BASOPHILS 0.1 % (0-2); EOSINOPHILS 0.6 % (0-7); HEMATOCRIT 40.4 % (36.0-48.0); HEMOGLOBIN 13.3 g/dL (12-16); IMMATURE GRANULOCYTES 0.1 % (0-5); LYMPHOCYTE ABS# 2.22 10x3/uL (1.18-3.74); LYMPHOCYTES 31.6 % (15-50); MCHC 32.9 g/dL (31.0-37.0); MCV 91.2 fL (80.0-100.0); MEAN PLATELET VOLUME 10.1 fL (7.4-10.4); MONOCYTES 13.8 % (2-11); NEUTROPHIL ABS# 3.78 10x3/uL (1.56-6.13); NEUTROPHILS 53.8 % (40-80); PLATELET COUNT 195 10x3/uL (130-400); RBC 4.43 10x6/uL (4.00-5.40); RDW 13.8 % (11.5-14.5)
[2020-09-22 04:59] LABS: ALBUMIN 3.3 g/dL (3.4-5.0); ALKALINE PHOSPHATASE 65 U/L (30-120); ALT (SGPT) 26 U/L (10-68); BILIRUBIN - TOTAL 0.73 mg/dL (0.2-1.3); CALC OSMOLALITY 272 mosm/kg (275-300); CALCIUM 8.9 mg/dL (8.5-10.1); CARBON DIOXIDE 32.2 mmol/L (21.0-32.0); CHLORIDE - SERUM 99 mmol/L (98-107); GLUCOSE 109 mg/dL (74-106); MAGNESIUM - SERUM 2.1 mg/dL (1.8-2.4); POTASSIUM - SERUM 3.7 mmol/L (3.5-5.1); PROTEIN - SERUM 6.4 g/dL (6.4-8.2); SODIUM 136 mmol/L (136-145); UREA NITROGEN 12 mg/dL (7-18); eGFR NON AFRICAN AMERICAN 77 mL/min (90-120)
[2020-09-22 05:00] LABS: CREATININE - SERUM 0.8 mg/dL (0.6-1.3); PHOSPHOROUS 4.9 mg/dL (2.5-4.9)
[2020-09-22 08:42] VITALS: BP 134/84
--- NOTE | 2020-09-22 09:38 | NUR ---
RESTING IN BED, PACKING TO LEFT NARE, CONT TO MONITOR BP AND BLEEDING
[2020-09-22 11:43] VITALS: BP 124/80
--- NOTE | 2020-09-22 15:24 | NUR ---
REVIEWED DC WITH PT, VOICED NO CONCERNS, IV REMOVED, TIP INTACT, TAKEN TO PRIVATE VEHICLE PER WC
== END 2020-09-22 15:26 | disposition home or self-care (01) ==
LOC: D.ER 20:32 → OBSVTIME 21:36 → D.M2 21:36
PROVIDERS: Family Medicine; ADMIT Emergency Medicine; ATTEND Emergency Medicine
DX: R04.0 Epistaxis (principal); I10 Essential (primary) hypertension; Z72.0 Tobacco use